=== PATIENT | male | born 1955 | race Caucasian/White ===

== ENCOUNTER 2016-10-11 07:16 | Emergency (ER) | payer OTHER ==
[~2016-10-11] VITALS: Ht 165.1 cm; Wt 78.2 kg
[~2016-10-11 07:16] MED LIST: ALBU8HFA IH; ASPI-825 PO; HALO50AM2 IM
[2016-10-11] MEDS ORDERED: LORA1TAB3 PO (07:37)
[2016-10-11] MEDS ORDERED: ALBUTEROL SULFATE HFA 90 MCG/PUFF 8 GM INHALER IH ONE (08:45)
[2016-10-11 08:52] VITALS: BP 112/64
== END 2016-10-11 09:06 | disposition home or self-care (01) ==
LOC: EMS 07:17
DX: J45.909 Unspecified asthma, uncomplicated (principal); J44.9 Chronic obstructive pulmonary disease, unspecified; F17.210 Nicotine dependence, cigarettes, uncomplicated; Z88.8 Allergy status to other drugs, medicaments and biological substances; Z79.82 Long term (current) use of aspirin
CPT/HCPCS: 71020; 94640; 99284; 99406; J3535

== ENCOUNTER 2017-01-21 23:27 | Emergency (ER) | payer OTHER ==
[~2017-01-21] VITALS: Ht 165.1 cm; Wt 72.7 kg
[~2017-01-21 23:27] MED LIST changes: +LORA1TAB3 PO
[2017-01-22] MEDS ORDERED: ALBUTEROL SULFATE 5 MG/ML 20 ML NEB SOLN [BULK] NEB ONE (00:15)
[2017-01-22] MEDS ORDERED: IPRATROPIUM BROMIDE 0.5 MG/2.5 ML NEB SOLUTION NEB ONE (00:15)
[2017-01-22] MEDS ORDERED: 0.9% SODIUM CHLORIDE 5 ML NEB SOLUTION NEB ONE (00:18)
[2017-01-22 01:12] VITALS: BP 109/63
== END 2017-01-22 01:35 | disposition home or self-care (01) ==
LOC: EMS 23:28
DX: J44.9 Chronic obstructive pulmonary disease, unspecified (principal); J45.909 Unspecified asthma, uncomplicated; F17.210 Nicotine dependence, cigarettes, uncomplicated; F12.90 Cannabis use, unspecified, uncomplicated; Z88.8 Allergy status to other drugs, medicaments and biological substances; Z79.82 Long term (current) use of aspirin
CPT/HCPCS: 94644; 99285; J7611

== ENCOUNTER 2017-02-21 19:37 | Emergency (ER) | payer OTHER ==
[~2017-02-21] VITALS: Ht 166.4 cm; Wt 65.9 kg
[2017-02-21] MEDS ORDERED: HALO5 PO (19:47)
[2017-02-21] MEDS ORDERED: NITROGLYCERIN 0.4 MG SUBLINGUAL TABLET #25 SL ONE (20:15)
[2017-02-21] MEDS ORDERED: ALBUTEROL SULFATE 5 MG/ML 20 ML NEB SOLN [BULK] NEB ONE (20:15)
[2017-02-21] MEDS ORDERED: PredniSONE 20 MG TABLET PO ONE (20:15)
[2017-02-21] MEDS ORDERED: ASPIRIN 325 MG TABLET PO ONE (20:15)
[2017-02-21 20:27] LABS: BASOPHILS % (AUTO) 0.8 % (0.0-2.0); EOSINOPHILS % (AUTO) 0.9 % (1.0-6.0); HEMOGLOBIN 15.2 g/dL (13.5-17.5); LYMPHOCYTES # (AUTO) 1.8 K/uL (1.0-4.8); MEAN CORPUSCULAR HEMOGLOBIN 31.4 pg (26.0-34.0); MEAN CORPUSCULAR HGB CONC 33.7 G/dL (31.0-37.0); MEAN CORPUSCULAR VOLUME 93 fL (80-100); MONOCYTES # (AUTO) 0.4 K/uL (0.1-1.0); MONOCYTES % (AUTO) 3.9 % (2.0-9.0); NEUTROPHILS # (AUTO) 7.5 K/uL (1.8-7.7); NEUTROPHILS % (AUTO) 76.4 % (40.0-70.0); PLATELET COUNT (AUTO) 289 K/uL (150-450); RED BLOOD CELL COUNT(AUTO) 4.83 MIL/uL (4.50-5.90); RED CELL DISTRIBUTION WIDTH 14.3 % (11.5-14.5); WHITE BLOOD COUNT (AUTO) 9.8 K/uL (4.5-11.0)
[2017-02-21 20:34] LABS: ANION GAP 11 mmol/L (8-16); CALCIUM, TOTAL 8.8 mg/dL (8.8-10.5); CARBON DIOXIDE 25 mmol/L (22-29); CHLORIDE 108 mmol/L (98-107); CREATININE 0.78 mg/dL (0.60-1.30); GLOMERULAR FILTR. RATE CALC > 60 mL/min (>60); POTASSIUM 3.7 mmol/L (3.5-5.1); SODIUM SERUM 144 mmol/L (136-145); UREA NITROGEN, BLOOD 9 mg/dL (7-18)
[2017-02-21 20:39] LABS: ALANINE AMINOTRANSFERASE 29 U/L (12-78); ALBUMIN 3.3 g/dL (3.4-5.0); ASPARTATE AMINOTRANSFERASE 23 U/L (15-37); BILIRUBIN,TOTAL 0.3 mg/dL (0.1-1.0); TOTAL PROTEIN, SERUM 7.1 g/dL (6.4-8.2)
[2017-02-21] MEDS ORDERED: 0.9% SODIUM CHLORIDE 5 ML NEB SOLUTION NEB ONE (21:08)
[2017-02-21 21:11] LABS: B-TYPE NATRIURETIC PEPTIDE 11 pg/mL (0-100)
[2017-02-22 01:41] VITALS: BP 132/82
== END 2017-02-22 01:48 | disposition home or self-care (01) ==
LOC: EMS 19:39
DX: J44.1 Chronic obstructive pulmonary disease with (acute) exacerbation (principal); R07.9 Chest pain, unspecified; R06.00 Dyspnea, unspecified; J45.909 Unspecified asthma, uncomplicated; F12.90 Cannabis use, unspecified, uncomplicated; F17.210 Nicotine dependence, cigarettes, uncomplicated; Z88.8 Allergy status to other drugs, medicaments and biological substances
CPT/HCPCS: 36415; 71020; 80053; 83690; 83880; 84484; 85025; 93005; 94640; 99285; J7512; J7611

== ENCOUNTER 2017-02-22 10:36 | Emergency (ER) | payer OTHER ==
[~2017-02-22] VITALS: Ht 165.1 cm; Wt 65.9 kg
[~2017-02-22 10:36] MED LIST changes: -ASPI-825 PO; +HALO5 PO; -HALO50AM2 IM
[2017-02-22 10:56] VITALS: BP 128/81
[2017-02-22] MEDS ORDERED: ALBUTEROL SULFATE HFA 90 MCG/PUFF 8 GM INHALER IH ONE (11:15)
[2017-02-22 11:17] LABS: EOSINOPHILS % (AUTO) 0.3 % (1.0-6.0); HEMATOCRIT 42.7 % (41-53); HEMOGLOBIN 14.5 g/dL (13.5-17.5); LYMPHOCYTES # (AUTO) 1.5 K/uL (1.0-4.8); LYMPHOCYTES % (AUTO) 14.8 % (22.0-44.0); MEAN CORPUSCULAR HEMOGLOBIN 31.4 pg (26.0-34.0); MEAN CORPUSCULAR VOLUME 92 fL (80-100); MONOCYTES # (AUTO) 0.3 K/uL (0.1-1.0); NEUTROPHILS # (AUTO) 8.4 K/uL (1.8-7.7); NEUTROPHILS % (AUTO) 81.9 % (40.0-70.0); PLATELET COUNT (AUTO) 292 K/uL (150-450); RED BLOOD CELL COUNT(AUTO) 4.62 MIL/uL (4.50-5.90); RED CELL DISTRIBUTION WIDTH 14.3 % (11.5-14.5); WHITE BLOOD COUNT (AUTO) 10.2 K/uL (4.5-11.0)
[2017-02-22 11:29] LABS: ANION GAP 10 mmol/L (8-16); CALCIUM, TOTAL 8.7 mg/dL (8.8-10.5); CARBON DIOXIDE 25 mmol/L (22-29); CHLORIDE 110 mmol/L (98-107); CREATININE 0.65 mg/dL (0.60-1.30); GLOMERULAR FILTR. RATE CALC > 60 mL/min (>60); POTASSIUM 4.1 mmol/L (3.5-5.1); SODIUM SERUM 145 mmol/L (136-145); UREA NITROGEN, BLOOD 13 mg/dL (7-18)
[2017-02-22 11:30] LABS: PROTHROMBIN TIME 10.7 SEC (9.4-11.6)
[2017-02-22 11:34] LABS: ALANINE AMINOTRANSFERASE 29 U/L (12-78); ALBUMIN 3.2 g/dL (3.4-5.0); ASPARTATE AMINOTRANSFERASE 23 U/L (15-37); BILIRUBIN,TOTAL 0.3 mg/dL (0.1-1.0); TOTAL PROTEIN, SERUM 6.8 g/dL (6.4-8.2)
[2017-02-22 11:39] LABS: B-TYPE NATRIURETIC PEPTIDE 12 pg/mL (0-100)
== END 2017-02-22 11:47 | disposition left against medical advice (07) ==
LOC: EMS 10:37
DX: J44.9 Chronic obstructive pulmonary disease, unspecified (principal); J20.9 Acute bronchitis, unspecified; J45.909 Unspecified asthma, uncomplicated; F17.210 Nicotine dependence, cigarettes, uncomplicated; F12.90 Cannabis use, unspecified, uncomplicated; Z88.8 Allergy status to other drugs, medicaments and biological substances
CPT/HCPCS: 93005; 94640; 99285; J3535

== ENCOUNTER 2017-02-28 01:09 | Emergency (ER) | payer OTHER ==
[~2017-02-28] VITALS: Ht 165.1 cm; Wt 68.0 kg
[~2017-02-28 01:09] MED LIST changes: +ASPI-825 PO; +HALO50AM2 IM
[2017-02-28 02:12] LABS: BASOPHILS # (AUTO) 0.18 K/uL (0.00-0.20); BASOPHILS % (AUTO) 1.5 % (0.0-2.0); EOSINOPHILS # (AUTO) 0.05 K/uL (0.00-0.70); EOSINOPHILS % (AUTO) 0.42 % (1.0-6.0); HEMATOCRIT 41.6 % (41-53); HEMOGLOBIN 13.8 g/dL (13.5-17.5); LYMPHOCYTES # (AUTO) 2.8 K/uL (1.0-4.8); LYMPHOCYTES % (AUTO) 23.8 % (22.0-44.0); MEAN CORPUSCULAR HEMOGLOBIN 30.7 pg (26.0-34.0); MEAN CORPUSCULAR HGB CONC 33.1 G/dL (31.0-37.0); MEAN CORPUSCULAR VOLUME 93 fL (80-100); MONOCYTES # (AUTO) 0.5 K/uL (0.1-1.0); MONOCYTES % (AUTO) 4.1 % (2.0-9.0); NEUTROPHILS # (AUTO) 8.3 K/uL (1.8-7.7); NEUTROPHILS % (AUTO) 70.2 % (40.0-70.0); PLATELET COUNT (AUTO) 265 K/uL (150-450); RED BLOOD CELL COUNT(AUTO) 4.49 MIL/uL (4.50-5.90); RED CELL DISTRIBUTION WIDTH 14.5 % (11.5-14.5); WHITE BLOOD COUNT (AUTO) 11.8 K/uL (4.5-11.0)
[2017-02-28 02:31] LABS: B-TYPE NATRIURETIC PEPTIDE 6 pg/mL (0-100)
[2017-02-28 02:34] LABS: ALANINE AMINOTRANSFERASE 34 U/L (12-78); ANION GAP 15 mmol/L (8-16); ASPARTATE AMINOTRANSFERASE 26 U/L (15-37); BILIRUBIN,TOTAL 0.2 mg/dL (0.1-1.0); CALCIUM, TOTAL 8.2 mg/dL (8.8-10.5); CARBON DIOXIDE 22 mmol/L (22-29); CHLORIDE 110 mmol/L (98-107); CREATININE 1.01 mg/dL (0.60-1.30); GLOMERULAR FILTR. RATE CALC > 60 mL/min (>60); SODIUM SERUM 147 mmol/L (136-145); TOTAL PROTEIN, SERUM 6.1 g/dL (6.4-8.2); UREA NITROGEN, BLOOD 16 mg/dL (7-18)
[2017-02-28 02:37] LABS: POTASSIUM 2.9 mmol/L (3.5-5.1)
[2017-02-28] MEDS ORDERED: POTASSIUM CHLORIDE 20 MEQ ER TABLET PO ONE (03:00)
[2017-02-28] MEDS: POTASSIUM CHL 10 MEQ/WATER 50 ML IV SCH ×2 (03:25→04:31)
[2017-02-28] MEDS ORDERED: ALBUTEROL SULFATE HFA 90 MCG/PUFF 8 GM INHALER IH ONE (06:00)
[2017-02-28 06:07] VITALS: BP 105/63
== END 2017-02-28 06:08 | disposition home or self-care (01) ==
LOC: EMS 01:10
DX: R07.9 Chest pain, unspecified (principal); E87.6 Hypokalemia; J45.909 Unspecified asthma, uncomplicated; J44.9 Chronic obstructive pulmonary disease, unspecified; F12.90 Cannabis use, unspecified, uncomplicated; F17.210 Nicotine dependence, cigarettes, uncomplicated; Z88.8 Allergy status to other drugs, medicaments and biological substances
CPT/HCPCS: 36415; 80053; 83690; 83880; 84132; 84484; 85025; 93005; 94640; 96365; 96366; 99285; 99406; J3480; J3535

== ENCOUNTER 2017-03-03 01:37 | Emergency (ER) | payer OTHER ==
[~2017-03-03] VITALS: Ht 165.1 cm; Wt 66.0 kg
[~2017-03-03 01:37] MED LIST changes: -ASPI-825 PO; -HALO50AM2 IM
[2017-03-03 02:48] LABS: BASOPHILS # (AUTO) 0.11 K/uL (0.00-0.20); BASOPHILS % (AUTO) 1.3 % (0.0-2.0); EOSINOPHILS # (AUTO) 0.14 K/uL (0.00-0.70); EOSINOPHILS % (AUTO) 1.65 % (1.0-6.0); HEMATOCRIT 41.4 % (41-53); LYMPHOCYTES # (AUTO) 1.7 K/uL (1.0-4.8); LYMPHOCYTES % (AUTO) 20.5 % (22.0-44.0); MEAN CORPUSCULAR HGB CONC 33.9 G/dL (31.0-37.0); MEAN CORPUSCULAR VOLUME 92 fL (80-100); MONOCYTES # (AUTO) 0.3 K/uL (0.1-1.0); MONOCYTES % (AUTO) 4.1 % (2.0-9.0); NEUTROPHILS % (AUTO) 72.5 % (40.0-70.0); PLATELET COUNT (AUTO) 218 K/uL (150-450); RED BLOOD CELL COUNT(AUTO) 4.53 MIL/uL (4.50-5.90); RED CELL DISTRIBUTION WIDTH 14.4 % (11.5-14.5); WHITE BLOOD COUNT (AUTO) 8.3 K/uL (4.5-11.0)
[2017-03-03 02:56] LABS: ANION GAP 10 mmol/L (8-16); CALCIUM, TOTAL 8.2 mg/dL (8.8-10.5); CARBON DIOXIDE 24 mmol/L (22-29); CHLORIDE 108 mmol/L (98-107); CREATININE 0.92 mg/dL (0.60-1.30); GLOMERULAR FILTR. RATE CALC > 60 mL/min (>60); POTASSIUM 3.8 mmol/L (3.5-5.1); SODIUM SERUM 142 mmol/L (136-145); UREA NITROGEN, BLOOD 13 mg/dL (7-18)
[2017-03-03 02:59] LABS: ALANINE AMINOTRANSFERASE 33 U/L (12-78); ALBUMIN 2.9 g/dL (3.4-5.0); ASPARTATE AMINOTRANSFERASE 24 U/L (15-37); BILIRUBIN,TOTAL 0.3 mg/dL (0.1-1.0); TOTAL PROTEIN, SERUM 6.2 g/dL (6.4-8.2)
[2017-03-03 03:21] LABS: B-TYPE NATRIURETIC PEPTIDE < 5 pg/mL (0-100)
[2017-03-03 03:29] VITALS: BP 121/67
[2017-03-03] MEDS ORDERED: ALBUTEROL SULFATE 5 MG/ML 20 ML NEB SOLN [BULK] NEB ONE (03:30)
[2017-03-03] MEDS ORDERED: DEXAMETHASONE SOD PHOS 4 MG/ML 5 ML VIAL IM ONE (03:30)
[2017-03-03] MEDS ORDERED: LORazepam 2 MG/ML VIAL IM ONE (03:30)
[2017-03-03] MEDS ORDERED: 0.9% SODIUM CHLORIDE 5 ML NEB SOLUTION NEB ONE (03:43)
== END 2017-03-03 04:30 | disposition left against medical advice (07) ==
LOC: EMS 01:39
DX: J44.9 Chronic obstructive pulmonary disease, unspecified (principal); J45.909 Unspecified asthma, uncomplicated; F17.210 Nicotine dependence, cigarettes, uncomplicated; F12.90 Cannabis use, unspecified, uncomplicated; Z88.8 Allergy status to other drugs, medicaments and biological substances
CPT/HCPCS: 36415; 71010; 80053; 83880; 84484; 85025; 93005; 94640; 99285; J7611; J1100; J2060

== ENCOUNTER 2017-03-12 21:42 | Emergency (ER) | payer OTHER ==
[~2017-03-12] VITALS: Ht 165.1 cm; Wt 145.0 kg
[2017-03-12] MEDS ORDERED: ALBUTEROL SULFATE HFA 90 MCG/PUFF 8 GM INHALER IH ONE (23:15)
[2017-03-12 23:28] LABS: BASOPHILS % (AUTO) 0.8 % (0.0-2.0); EOSINOPHILS % (AUTO) 1.2 % (1.0-6.0); HEMOGLOBIN 14.1 g/dL (13.5-17.5); LYMPHOCYTES # (AUTO) 1.7 K/uL (1.0-4.8); LYMPHOCYTES % (AUTO) 16.9 % (22.0-44.0); MEAN CORPUSCULAR HEMOGLOBIN 31.4 pg (26.0-34.0); MEAN CORPUSCULAR HGB CONC 34.4 G/dL (31.0-37.0); MEAN CORPUSCULAR VOLUME 91 fL (80-100); MONOCYTES # (AUTO) 0.4 K/uL (0.1-1.0); MONOCYTES % (AUTO) 4.1 % (2.0-9.0); NEUTROPHILS # (AUTO) 7.7 K/uL (1.8-7.7); PLATELET COUNT (AUTO) 257 K/uL (150-450); RED BLOOD CELL COUNT(AUTO) 4.49 MIL/uL (4.50-5.90); RED CELL DISTRIBUTION WIDTH 14.2 % (11.5-14.5)
[2017-03-12 23:37] LABS: ANION GAP 8 mmol/L (8-16); CALCIUM, TOTAL 8.2 mg/dL (8.8-10.5); CARBON DIOXIDE 26 mmol/L (22-29); CHLORIDE 108 mmol/L (98-107); CREATININE 0.89 mg/dL (0.60-1.30); GLOMERULAR FILTR. RATE CALC > 60 mL/min (>60); POTASSIUM 3.5 mmol/L (3.5-5.1); SODIUM SERUM 142 mmol/L (136-145); UREA NITROGEN, BLOOD 18 mg/dL (7-18)
[2017-03-12 23:43] LABS: ALANINE AMINOTRANSFERASE 24 U/L (12-78); ALBUMIN 2.9 g/dL (3.4-5.0); ASPARTATE AMINOTRANSFERASE 17 U/L (15-37); BILIRUBIN,TOTAL 0.2 mg/dL (0.1-1.0); TOTAL PROTEIN, SERUM 6.1 g/dL (6.4-8.2)
[2017-03-13 00:32] VITALS: BP 128/78
== END 2017-03-13 00:40 | disposition home or self-care (01) ==
LOC: EMS 21:51
DX: J44.1 Chronic obstructive pulmonary disease with (acute) exacerbation (principal); R07.89 Other chest pain; S63.615A Unspecified sprain of left ring finger, initial encounter; J45.909 Unspecified asthma, uncomplicated; F12.90 Cannabis use, unspecified, uncomplicated; F17.210 Nicotine dependence, cigarettes, uncomplicated; Z88.8 Allergy status to other drugs, medicaments and biological substances; W22.8XXA Striking against or struck by other objects, initial encounter; Y93.89 Activity, other specified; Y92.009 Unspecified place in unspecified non-institutional (private) residence as the place of occurrence of the external cause; Y99.8 Other external cause status
CPT/HCPCS: 93005; 94640; 99285; 99406; J3535

== ENCOUNTER 2017-03-16 10:55 | Emergency (ER) | payer OTHER ==
[~2017-03-16] VITALS: Ht 175.3 cm; Wt 81.8 kg
[2017-03-16] MEDS ORDERED: IBUP-2070 PO (11:01)
[2017-03-16 11:28] LABS: BASOPHILS # (AUTO) 0.03 K/uL (0.00-0.20); BASOPHILS % (AUTO) 0.4 % (0.0-2.0); EOSINOPHILS # (AUTO) 0.08 K/uL (0.00-0.70); EOSINOPHILS % (AUTO) 0.98 % (1.0-6.0); HEMATOCRIT 42.6 % (41-53); HEMOGLOBIN 14.5 g/dL (13.5-17.5); LYMPHOCYTES # (AUTO) 1.2 K/uL (1.0-4.8); LYMPHOCYTES % (AUTO) 15.1 % (22.0-44.0); MEAN CORPUSCULAR HEMOGLOBIN 31.1 pg (26.0-34.0); MEAN CORPUSCULAR HGB CONC 33.9 G/dL (31.0-37.0); MEAN CORPUSCULAR VOLUME 92 fL (80-100); MONOCYTES # (AUTO) 0.1 K/uL (0.1-1.0); MONOCYTES % (AUTO) 1.8 % (2.0-9.0); NEUTROPHILS # (AUTO) 6.5 K/uL (1.8-7.7); NEUTROPHILS % (AUTO) 81.7 % (40.0-70.0); PLATELET COUNT (AUTO) 264 K/uL (150-450); RED BLOOD CELL COUNT(AUTO) 4.65 MIL/uL (4.50-5.90); WHITE BLOOD COUNT (AUTO) 7.9 K/uL (4.5-11.0)
[2017-03-16 11:40] LABS: ANION GAP 7 mmol/L (8-16); CALCIUM, TOTAL 8.5 mg/dL (8.8-10.5); CARBON DIOXIDE 27 mmol/L (22-29); CHLORIDE 108 mmol/L (98-107); CREATININE 0.78 mg/dL (0.60-1.30); GLOMERULAR FILTR. RATE CALC > 60 mL/min (>60); SODIUM SERUM 142 mmol/L (136-145); UREA NITROGEN, BLOOD 12 mg/dL (7-18)
[2017-03-16 11:42] LABS: PROTHROMBIN TIME 10.5 SEC (9.4-11.6)
[2017-03-16 11:44] LABS: B-TYPE NATRIURETIC PEPTIDE 39 pg/mL (0-100)
[2017-03-16 12:05] LABS: ALANINE AMINOTRANSFERASE 28 U/L (12-78); ALBUMIN 3.2 g/dL (3.4-5.0); ASPARTATE AMINOTRANSFERASE 20 U/L (15-37); BILIRUBIN,TOTAL 0.3 mg/dL (0.1-1.0); CREATINE KINASE MB 3.4 ng/mL (0-5); CREATINE KINASE, TOTAL 212 U/L (39-308); TOTAL PROTEIN, SERUM 6.8 g/dL (6.4-8.2)
[2017-03-16 12:29] LABS: APPEARANCE,URINE CLEAR (CLEAR); GLUCOSE, URINE (UA) NEGATIVE (NEGATIVE); KETONES,URINE NEGATIVE (NEGATIVE); LEUKOCYTE ESTERASE ,URINE NEGATIVE (NEGATIVE); OCCULT BLOOD,URINE NEGATIVE (NEGATIVE); PROTEIN,URINE NEGATIVE (NEGATIVE)
[2017-03-16 12:39] LABS: ADD UA MICROSCOPIC NO
[2017-03-16 13:12] VITALS: BP 114/72
== END 2017-03-16 13:58 | disposition home or self-care (01) ==
LOC: EMS 10:56
DX: R07.89 Other chest pain (principal); J45.909 Unspecified asthma, uncomplicated; J44.9 Chronic obstructive pulmonary disease, unspecified; F12.90 Cannabis use, unspecified, uncomplicated; F17.210 Nicotine dependence, cigarettes, uncomplicated; Z88.8 Allergy status to other drugs, medicaments and biological substances
CPT/HCPCS: 93005; 99285

== ENCOUNTER 2017-03-16 20:28 | Emergency (ER) | payer OTHER ==
[~2017-03-16] VITALS: Ht 170.2 cm; Wt 65.5 kg
[~2017-03-16 20:28] MED LIST changes: +IBUP-2070 PO
[2017-03-16 21:00] LABS: BASOPHILS % (AUTO) 0.4 % (0.0-2.0); EOSINOPHILS % (AUTO) 1.5 % (1.0-6.0); HEMATOCRIT 39.7 % (41-53); HEMOGLOBIN 13.7 g/dL (13.5-17.5); LYMPHOCYTES # (AUTO) 2.2 K/uL (1.0-4.8); LYMPHOCYTES % (AUTO) 24.1 % (22.0-44.0); MEAN CORPUSCULAR HEMOGLOBIN 31.7 pg (26.0-34.0); MEAN CORPUSCULAR HGB CONC 34.4 G/dL (31.0-37.0); MEAN CORPUSCULAR VOLUME 92 fL (80-100); MONOCYTES # (AUTO) 0.4 K/uL (0.1-1.0); MONOCYTES % (AUTO) 4.8 % (2.0-9.0); NEUTROPHILS # (AUTO) 6.4 K/uL (1.8-7.7); NEUTROPHILS % (AUTO) 69.2 % (40.0-70.0); PLATELET COUNT (AUTO) 247 K/uL (150-450); RED BLOOD CELL COUNT(AUTO) 4.31 MIL/uL (4.50-5.90); RED CELL DISTRIBUTION WIDTH 14.2 % (11.5-14.5); WHITE BLOOD COUNT (AUTO) 9.3 K/uL (4.5-11.0)
[2017-03-16 21:10] LABS: ANION GAP 10 mmol/L (8-16); CALCIUM, TOTAL 8.5 mg/dL (8.8-10.5); CARBON DIOXIDE 25 mmol/L (22-29); CHLORIDE 109 mmol/L (98-107); CREATININE 0.87 mg/dL (0.60-1.30); GLOMERULAR FILTR. RATE CALC > 60 mL/min (>60); POTASSIUM 3.8 mmol/L (3.5-5.1); SODIUM SERUM 144 mmol/L (136-145); UREA NITROGEN, BLOOD 12 mg/dL (7-18)
[2017-03-16 21:15] LABS: ACETAMINOPHEN 2 mcg/mL (10-30); ALANINE AMINOTRANSFERASE 23 U/L (12-78); ALBUMIN 3.4 g/dL (3.4-5.0); ASPARTATE AMINOTRANSFERASE 18 U/L (15-37); BILIRUBIN,TOTAL 0.1 mg/dL (0.1-1.0); TOTAL PROTEIN, SERUM 6.5 g/dL (6.4-8.2)
[2017-03-16 21:21] LABS: SALICYLATE 1.8 mg/dL (2.8-20.0)
[2017-03-16 22:55] VITALS: BP 119/65
== END 2017-03-16 22:57 | disposition home or self-care (01) ==
LOC: EMS 20:38
DX: F91.2 Conduct disorder, adolescent-onset type (principal); M54.5 Low back pain; F17.210 Nicotine dependence, cigarettes, uncomplicated; F12.10 Cannabis abuse, uncomplicated; J44.9 Chronic obstructive pulmonary disease, unspecified; F20.9 Schizophrenia, unspecified; F31.9 Bipolar disorder, unspecified; Z88.8 Allergy status to other drugs, medicaments and biological substances; Z86.73 Personal history of transient ischemic attack (TIA), and cerebral infarction without residual deficits
CPT/HCPCS: 36415; 80053; 85025; 99284; 99406; G0480; G0481

== ENCOUNTER 2017-03-17 15:20 | Emergency (ER) | payer OTHER ==
[~2017-03-17] VITALS: Ht 165.1 cm; Wt 63.6 kg
[2017-03-17 17:09] LABS: BASOPHILS % (AUTO) 0.2 % (0.0-2.0); EOSINOPHILS % (AUTO) 0.3 % (1.0-6.0); HEMATOCRIT 45.9 % (41-53); HEMOGLOBIN 15.5 g/dL (13.5-17.5); LYMPHOCYTES # (AUTO) 0.9 K/uL (1.0-4.8); MEAN CORPUSCULAR HEMOGLOBIN 31.4 pg (26.0-34.0); MEAN CORPUSCULAR HGB CONC 33.8 G/dL (31.0-37.0); MEAN CORPUSCULAR VOLUME 93 fL (80-100); MONOCYTES # (AUTO) 0.4 K/uL (0.1-1.0); MONOCYTES % (AUTO) 3.8 % (2.0-9.0); NEUTROPHILS # (AUTO) 10.2 K/uL (1.8-7.7); PLATELET COUNT (AUTO) 288 K/uL (150-450); RED BLOOD CELL COUNT(AUTO) 4.94 MIL/uL (4.50-5.90); RED CELL DISTRIBUTION WIDTH 14.4 % (11.5-14.5); WHITE BLOOD COUNT (AUTO) 11.7 K/uL (4.5-11.0)
[2017-03-17 17:10] LABS: NEUTROPHILS % (AUTO) 87.7 % (40.0-70.0)
[2017-03-17 17:22] LABS: ANION GAP 8 mmol/L (8-16); CALCIUM, TOTAL 8.6 mg/dL (8.8-10.5); CARBON DIOXIDE 26 mmol/L (22-29); CHLORIDE 111 mmol/L (98-107); CREATININE 1.16 mg/dL (0.60-1.30); GLOMERULAR FILTR. RATE CALC > 60 mL/min (>60); POTASSIUM 4.1 mmol/L (3.5-5.1); SODIUM SERUM 145 mmol/L (136-145); UREA NITROGEN, BLOOD 12 mg/dL (7-18)
[2017-03-17 17:36] LABS: ALANINE AMINOTRANSFERASE 27 U/L (12-78); ALBUMIN 3.4 g/dL (3.4-5.0); ASPARTATE AMINOTRANSFERASE 22 U/L (15-37); BILIRUBIN,TOTAL 0.4 mg/dL (0.1-1.0); TOTAL PROTEIN, SERUM 7.1 g/dL (6.4-8.2)
[2017-03-17 17:41] LABS: RBC MORPHOLOGY COMMENT NORMAL RBC MORPH
[2017-03-17] MEDS ORDERED: ALBUTEROL SULFATE 2.5 MG/0.5 ML NEB SOLUTION NEB ONE (20:15)
[2017-03-17] MEDS ORDERED: IPRATROPIUM BROMIDE 0.5 MG/2.5 ML NEB SOLUTION NEB ONE (20:15)
[2017-03-17 20:55] VITALS: BP 127/84
== END 2017-03-17 21:20 | disposition home or self-care (01) ==
LOC: EMS 15:22
DX: F44.9 Dissociative and conversion disorder, unspecified (principal); F31.9 Bipolar disorder, unspecified; J44.9 Chronic obstructive pulmonary disease, unspecified; F20.9 Schizophrenia, unspecified; I25.10 Atherosclerotic heart disease of native coronary artery without angina pectoris; F17.210 Nicotine dependence, cigarettes, uncomplicated; F12.10 Cannabis abuse, uncomplicated
CPT/HCPCS: 36415; 80053; 80307; 85025; 94060; 94640; 99284; G0480; J7613

== ENCOUNTER 2017-03-21 19:48 | Emergency (ER) | payer OTHER ==
[~2017-03-21] VITALS: Ht 165.1 cm; Wt 56.8 kg
[2017-03-21] MEDS ORDERED: LORazepam 1 MG TABLET PO ONE (21:00)
[2017-03-21 21:45] VITALS: BP 122/81
== END 2017-03-21 21:53 | disposition home or self-care (01) ==
LOC: EMS 19:50
DX: F41.9 Anxiety disorder, unspecified (principal); F20.9 Schizophrenia, unspecified; J44.9 Chronic obstructive pulmonary disease, unspecified; F31.9 Bipolar disorder, unspecified; Z86.73 Personal history of transient ischemic attack (TIA), and cerebral infarction without residual deficits; Z88.8 Allergy status to other drugs, medicaments and biological substances
CPT/HCPCS: 93005; 99285

== ENCOUNTER 2017-04-07 05:05 | Emergency (ER) | payer OTHER ==
[~2017-04-07] VITALS: Ht 167.6 cm; Wt 80.0 kg
[2017-04-07] MEDS ORDERED: BUDE10.2 IH (05:22)
[2017-04-07] MEDS ORDERED: IPRATROPIUM BROMIDE 0.5 MG/2.5 ML NEB SOLUTION NEB ONE (06:15)
[2017-04-07] MEDS ORDERED: ALBUTEROL SULFATE 2.5 MG/0.5 ML NEB SOLUTION NEB ONE (06:15)
[2017-04-07 08:11] VITALS: BP 103/73
== END 2017-04-07 08:46 | disposition home or self-care (01) ==
LOC: EMS 05:06
DX: F41.9 Anxiety disorder, unspecified (principal); J45.909 Unspecified asthma, uncomplicated; J44.9 Chronic obstructive pulmonary disease, unspecified; F12.90 Cannabis use, unspecified, uncomplicated; F17.210 Nicotine dependence, cigarettes, uncomplicated; Z88.8 Allergy status to other drugs, medicaments and biological substances
CPT/HCPCS: 36415; 84484; 93005; 94640; 99285; J7613

== ENCOUNTER 2017-04-11 17:35 | Emergency (ER) | payer OTHER ==
[~2017-04-11] VITALS: Ht 165.1 cm; Wt 73.6 kg
[~2017-04-11 17:35] MED LIST changes: +BUDE10.2 IH; -HALO5 PO; -IBUP-2070 PO; -LORA1TAB3 PO
[2017-04-11] MEDS ORDERED: IBUP-2070 PO (17:47)
[2017-04-11] MEDS ORDERED: ASPIRIN 81 MG CHEWABLE TABLET PO ONE (18:15)
[2017-04-11 18:34] LABS: BASOPHILS % (AUTO) 0.7 % (0.0-2.0); EOSINOPHILS % (AUTO) 0.5 % (1.0-6.0); HEMATOCRIT 41.6 % (41-53); HEMOGLOBIN 14.1 g/dL (13.5-17.5); LYMPHOCYTES # (AUTO) 1.1 K/uL (1.0-4.8); LYMPHOCYTES % (AUTO) 11.2 % (22.0-44.0); MEAN CORPUSCULAR HEMOGLOBIN 31.3 pg (26.0-34.0); MEAN CORPUSCULAR VOLUME 92 fL (80-100); MONOCYTES # (AUTO) 0.4 K/uL (0.1-1.0); MONOCYTES % (AUTO) 3.7 % (2.0-9.0); NEUTROPHILS % (AUTO) 83.9 % (40.0-70.0); PLATELET COUNT (AUTO) 303 K/uL (150-450); RED BLOOD CELL COUNT(AUTO) 4.51 MIL/uL (4.50-5.90); RED CELL DISTRIBUTION WIDTH 13.9 % (11.5-14.5); WHITE BLOOD COUNT (AUTO) 9.5 K/uL (4.5-11.0)
[2017-04-11 18:41] LABS: ANION GAP 7 mmol/L (8-16); CALCIUM, TOTAL 8.4 mg/dL (8.8-10.5); CARBON DIOXIDE 27 mmol/L (22-29); CHLORIDE 104 mmol/L (98-107); CREATININE 0.83 mg/dL (0.60-1.30); GLOMERULAR FILTR. RATE CALC > 60 mL/min (>60); POTASSIUM 3.6 mmol/L (3.5-5.1); SODIUM SERUM 138 mmol/L (136-145); UREA NITROGEN, BLOOD 10 mg/dL (7-18)
[2017-04-11 19:06] LABS: ALANINE AMINOTRANSFERASE 29 U/L (12-78); ALBUMIN 3.2 g/dL (3.4-5.0); ASPARTATE AMINOTRANSFERASE 19 U/L (15-37); BILIRUBIN,TOTAL 0.3 mg/dL (0.1-1.0); CREATINE KINASE MB 5.8 ng/mL (0-5); CREATINE KINASE, TOTAL 311 U/L (39-308); TOTAL PROTEIN, SERUM 6.6 g/dL (6.4-8.2)
[2017-04-11 19:50] LABS: B-TYPE NATRIURETIC PEPTIDE 13 pg/mL (0-100)
[2017-04-11 20:13] VITALS: BP 126/63
== END 2017-04-11 20:14 | disposition home or self-care (01) ==
LOC: EMS 17:37
DX: R07.2 Precordial pain (principal); J45.909 Unspecified asthma, uncomplicated; J44.9 Chronic obstructive pulmonary disease, unspecified; F12.90 Cannabis use, unspecified, uncomplicated; F17.210 Nicotine dependence, cigarettes, uncomplicated; Z88.8 Allergy status to other drugs, medicaments and biological substances
CPT/HCPCS: 93005; 99285

== ENCOUNTER 2017-05-24 01:52 | Emergency (ER) | payer OTHER ==
[~2017-05-24] VITALS: Ht 162.6 cm; Wt 65.9 kg
[~2017-05-24 01:52] MED LIST changes: +IBUP-2070 PO
[2017-05-24 02:29] LABS: EOSINOPHILS % (AUTO) 0.2 % (1.0-6.0); HEMATOCRIT 43.1 % (41-53); HEMOGLOBIN 14.5 g/dL (13.5-17.5); LYMPHOCYTES # (AUTO) 0.6 K/uL (1.0-4.8); LYMPHOCYTES % (AUTO) 2.8 % (22.0-44.0); MEAN CORPUSCULAR HEMOGLOBIN 30.6 pg (26.0-34.0); MEAN CORPUSCULAR HGB CONC 33.5 G/dL (31.0-37.0); MEAN CORPUSCULAR VOLUME 91 fL (80-100); MONOCYTES # (AUTO) 0.7 K/uL (0.1-1.0); MONOCYTES % (AUTO) 2.9 % (2.0-9.0); NEUTROPHILS # (AUTO) 21.1 K/uL (1.8-7.7); PLATELET COUNT (AUTO) 223 K/uL (150-450); RED BLOOD CELL COUNT(AUTO) 4.71 MIL/uL (4.50-5.90); RED CELL DISTRIBUTION WIDTH 14.5 % (11.5-14.5); WHITE BLOOD COUNT (AUTO) 22.4 K/uL (4.5-11.0)
[2017-05-24 02:31] LABS: NEUTROPHILS % (AUTO) 94.1 % (40.0-70.0)
[2017-05-24 02:41] LABS: ANION GAP 12 mmol/L (8-16); CARBON DIOXIDE 26 mmol/L (22-29); CHLORIDE 104 mmol/L (98-107); CREATININE 1.75 mg/dL (0.60-1.30); GLOMERULAR FILTR. RATE CALC 40 mL/min (>60); POTASSIUM 3.2 mmol/L (3.5-5.1); SODIUM SERUM 142 mmol/L (136-145); UREA NITROGEN, BLOOD 63 mg/dL (7-18)
[2017-05-24 02:46] LABS: ALANINE AMINOTRANSFERASE 45 U/L (12-78); ALBUMIN 2.8 g/dL (3.4-5.0); ASPARTATE AMINOTRANSFERASE 48 U/L (15-37); BILIRUBIN,TOTAL 0.8 mg/dL (0.1-1.0); TOTAL PROTEIN, SERUM 6.5 g/dL (6.4-8.2)
[2017-05-24] MEDS ORDERED: POTASSIUM CHLORIDE 20 MEQ ER TABLET PO ONE ×2 (03:30→06:30)
[2017-05-24] MEDS ORDERED: IPRATROPIUM BROMIDE 0.5 MG/2.5 ML NEB SOLUTION NEB ONE (03:30)
[2017-05-24] MEDS ORDERED: SODIUM CHLORIDE 0.9% 1,000 ML IV ONE ×2 (03:30→08:00)
[2017-05-24] MEDS ORDERED: ALBUTEROL SULFATE 2.5 MG/0.5 ML NEB SOLUTION NEB ONE (03:30)
[2017-05-24 05:45] LABS: BASOPHILS # (AUTO) 0.05 K/uL (0.00-0.20); BASOPHILS % (AUTO) 0.2 % (0.0-2.0); EOSINOPHILS # (AUTO) 0.05 K/uL (0.00-0.70); EOSINOPHILS % (AUTO) 0.21 % (1.0-6.0); HEMATOCRIT 39.9 % (41-53); HEMOGLOBIN 13.2 g/dL (13.5-17.5); LYMPHOCYTES # (AUTO) 0.9 K/uL (1.0-4.8); MEAN CORPUSCULAR HEMOGLOBIN 30.6 pg (26.0-34.0); MEAN CORPUSCULAR HGB CONC 33.2 G/dL (31.0-37.0); MEAN CORPUSCULAR VOLUME 92 fL (80-100); MONOCYTES # (AUTO) 0.6 K/uL (0.1-1.0); MONOCYTES % (AUTO) 2.8 % (2.0-9.0); NEUTROPHILS # (AUTO) 20.6 K/uL (1.8-7.7); NEUTROPHILS % (AUTO) 92.8 % (40.0-70.0); PLATELET COUNT (AUTO) 197 K/uL (150-450); RED BLOOD CELL COUNT(AUTO) 4.33 MIL/uL (4.50-5.90); RED CELL DISTRIBUTION WIDTH 14.6 % (11.5-14.5); WHITE BLOOD COUNT (AUTO) 22.2 K/uL (4.5-11.0)
[2017-05-24 05:57] LABS: CALCIUM, TOTAL 8.3 mg/dL (8.8-10.5); CREATININE 1.44 mg/dL (0.60-1.30); POTASSIUM 3.2 mmol/L (3.5-5.1)
[2017-05-24 06:07] LABS: ALBUMIN 2.5 g/dL (3.4-5.0); BILIRUBIN,TOTAL 0.8 mg/dL (0.1-1.0); TOTAL PROTEIN, SERUM 5.9 g/dL (6.4-8.2)
[2017-05-24 06:44] LABS: GLUCOSE, URINE (UA) NEGATIVE (NEGATIVE); KETONES,URINE 15 mg/dL (NEGATIVE); LEUKOCYTE ESTERASE ,URINE NEGATIVE (NEGATIVE); OCCULT BLOOD,URINE SMALL (NEGATIVE); PROTEIN,URINE TRACE (NEGATIVE)
[2017-05-24] MEDS ORDERED: AZITHROMYCIN 500 MG/NS 250 ML IV ONE (07:00)
[2017-05-24] MEDS ORDERED: CefTRIAXone 1 GM/DEXTROSE 50 ML IV ONE (07:00)
[2017-05-24 07:03] LABS: ADD UA MICROSCOPIC YES; APPEARANCE,URINE HAZY (CLEAR); WBC,URINE None Seen /HPF (0-5)
[2017-05-24 08:19] VITALS: BP 98/69
== END 2017-05-24 09:40 | disposition short-term general hospital (02) ==
LOC: EMS 01:53
DX: J18.9 Pneumonia, unspecified organism (principal); F25.9 Schizoaffective disorder, unspecified; F41.9 Anxiety disorder, unspecified; F31.9 Bipolar disorder, unspecified; J44.9 Chronic obstructive pulmonary disease, unspecified; J45.909 Unspecified asthma, uncomplicated; F17.210 Nicotine dependence, cigarettes, uncomplicated; F12.90 Cannabis use, unspecified, uncomplicated; Z86.73 Personal history of transient ischemic attack (TIA), and cerebral infarction without residual deficits; Z88.8 Allergy status to other drugs, medicaments and biological substances
CPT/HCPCS: 36415; 71020; 80053; 80307; 81001; 85025; 87040; 93005; 94640; 96361; 96365; 96368; 99285; G0480; J0456; J0696; J7030; J7613

== ENCOUNTER 2017-05-27 22:33 | Emergency (ER) | payer OTHER ==
[~2017-05-27] VITALS: Ht 165.1 cm; Wt 64.7 kg
[2017-05-27 23:13] LABS: EOSINOPHILS % (AUTO) 0.02 % (1.0-6.0); HEMATOCRIT 41.2 % (41-53); LYMPHOCYTES # (AUTO) 0.4 K/uL (1.0-4.8); LYMPHOCYTES % (AUTO) 3.7 % (22.0-44.0); MEAN CORPUSCULAR HEMOGLOBIN 30.6 pg (26.0-34.0); MEAN CORPUSCULAR VOLUME 90 fL (80-100); MONOCYTES # (AUTO) 0.1 K/uL (0.1-1.0); MONOCYTES % (AUTO) 0.7 % (2.0-9.0); NEUTROPHILS # (AUTO) 11.3 K/uL (1.8-7.7); PLATELET COUNT (AUTO) 267 K/uL (150-450); RED BLOOD CELL COUNT(AUTO) 4.58 MIL/uL (4.50-5.90); RED CELL DISTRIBUTION WIDTH 14.3 % (11.5-14.5); WHITE BLOOD COUNT (AUTO) 11.8 K/uL (4.5-11.0)
[2017-05-27 23:14] LABS: NEUTROPHILS % (AUTO) 95.5 % (40.0-70.0)
[2017-05-27 23:23] LABS: ANION GAP 9 mmol/L (8-16); CALCIUM, TOTAL 9.1 mg/dL (8.8-10.5); CARBON DIOXIDE 27 mmol/L (22-29); CHLORIDE 100 mmol/L (98-107); CREATININE 0.78 mg/dL (0.60-1.30); GLOMERULAR FILTR. RATE CALC > 60 mL/min (>60); POTASSIUM 4.3 mmol/L (3.5-5.1); SODIUM SERUM 136 mmol/L (136-145); UREA NITROGEN, BLOOD 22 mg/dL (7-18)
[2017-05-27 23:24] LABS: PROTHROMBIN TIME 10.9 SEC (9.4-11.6)
[2017-05-27 23:52] LABS: B-TYPE NATRIURETIC PEPTIDE 27 pg/mL (0-100)
[2017-05-27 23:54] LABS: ALANINE AMINOTRANSFERASE 50 U/L (12-78); ALBUMIN 2.9 g/dL (3.4-5.0); ASPARTATE AMINOTRANSFERASE 22 U/L (15-37); BILIRUBIN,TOTAL 0.4 mg/dL (0.1-1.0); CREATINE KINASE MB 2.1 ng/mL (0-5); CREATINE KINASE, TOTAL 111 U/L (39-308); TOTAL PROTEIN, SERUM 7.3 g/dL (6.4-8.2)
[2017-05-28] MEDS ORDERED: IOVERSOL 350 MG/ML 100 ML VIAL ONE (00:53)
[2017-05-28] MEDS ORDERED: LEVOFLOXACIN 750 MG/D5% WATER 150 ML IV ONE (01:00)
[2017-05-28 01:59] LABS: APPEARANCE,URINE CLEAR (CLEAR); GLUCOSE, URINE (UA) NEGATIVE (NEGATIVE); KETONES,URINE NEGATIVE (NEGATIVE); LEUKOCYTE ESTERASE ,URINE NEGATIVE (NEGATIVE); OCCULT BLOOD,URINE NEGATIVE (NEGATIVE); PH,URINE 6.5 (5.0-8.0); PROTEIN,URINE NEGATIVE (NEGATIVE)
[2017-05-28 02:01] LABS: ADD UA MICROSCOPIC NO
[2017-05-28] MEDS ORDERED: HEPARIN SODIUM 25000 UNITS/D5W 250 ML IV PRN (03:11)
[2017-05-28] MEDS ORDERED: HEPARIN SODIUM,PORCINE 5,000 UNITS/ML VIAL IVP ONE ×2 (03:15→03:45)
[2017-05-28] MEDS ORDERED: HEPARIN SODIUM,PORCINE 5,000 UNITS/ML VIAL IVP PRN ×2 (03:15)
[2017-05-28 04:16] VITALS: BP 105/69
== END 2017-05-28 04:18 | disposition short-term general hospital (02) ==
LOC: EMS 22:34
DX: I26.99 Other pulmonary embolism without acute cor pulmonale (principal); J18.9 Pneumonia, unspecified organism; J45.909 Unspecified asthma, uncomplicated; J44.9 Chronic obstructive pulmonary disease, unspecified; F17.210 Nicotine dependence, cigarettes, uncomplicated; F12.90 Cannabis use, unspecified, uncomplicated; Z86.73 Personal history of transient ischemic attack (TIA), and cerebral infarction without residual deficits; Z88.8 Allergy status to other drugs, medicaments and biological substances
CPT/HCPCS: 36415; 71010; 71275; 80053; 81003; 82550; 82553; 83880; 84484; 85025; 85379; 85610; 85730; 93005; 96365; 96366; 96367; 96375; 99285; J1644 ×2; J1956; Q9967

== ENCOUNTER 2017-10-07 20:51 | Emergency (ER) | payer OTHER ==
[~2017-10-07] VITALS: Ht 165.1 cm; Wt 67.0 kg
[2017-10-07] MEDS ORDERED: IPRATROPIUM BROMIDE 0.5 MG/2.5 ML NEB SOLUTION NEB ONE (22:00)
[2017-10-07] MEDS ORDERED: ALBUTEROL SULFATE 2.5 MG/0.5 ML NEB SOLUTION NEB ONE (22:00)
[2017-10-07] MEDS ORDERED: SODIUM CHLORIDE 0.9% 1,000 ML IV ONE (23:15)
[2017-10-08 00:11] VITALS: BP 90/66
== END 2017-10-08 00:23 | disposition home or self-care (01) ==
LOC: EMS 20:52
DX: J44.1 Chronic obstructive pulmonary disease with (acute) exacerbation (principal); G89.29 Other chronic pain; J45.901 Unspecified asthma with (acute) exacerbation; F17.210 Nicotine dependence, cigarettes, uncomplicated; F12.90 Cannabis use, unspecified, uncomplicated; Z76.0 Encounter for issue of repeat prescription; Z86.73 Personal history of transient ischemic attack (TIA), and cerebral infarction without residual deficits; Z88.8 Allergy status to other drugs, medicaments and biological substances
CPT/HCPCS: 94640; 96360; 99284; J7030; J7613

== ENCOUNTER 2017-10-22 01:09 | Emergency (ER) | payer OTHER ==
[~2017-10-22] VITALS: Ht 165.1 cm; Wt 65.0 kg
[2017-10-22 02:53] LABS: BASOPHILS % (AUTO) 0.6 % (0.0-2.0); EOSINOPHILS % (AUTO) 3.2 % (1.0-6.0); HEMATOCRIT 38.7 % (41-53); LYMPHOCYTES # (AUTO) 1.7 K/uL (1.0-4.8); MEAN CORPUSCULAR HEMOGLOBIN 30.2 pg (26.0-34.0); MEAN CORPUSCULAR HGB CONC 33.5 G/dL (31.0-37.0); MEAN CORPUSCULAR VOLUME 90 fL (80-100); MONOCYTES # (AUTO) 0.4 K/uL (0.1-1.0); MONOCYTES % (AUTO) 6.2 % (2.0-9.0); NEUTROPHILS # (AUTO) 3.9 K/uL (1.8-7.7); PLATELET COUNT (AUTO) 243 K/uL (150-450); RED CELL DISTRIBUTION WIDTH 14.4 % (11.5-14.5)
[2017-10-22 03:00] LABS: ANION GAP 6 mmol/L (8-16); CALCIUM, TOTAL 8.9 mg/dL (8.8-10.5); CARBON DIOXIDE 30 mmol/L (22-29); CHLORIDE 106 mmol/L (98-107); CREATININE 0.86 mg/dL (0.60-1.30); GLOMERULAR FILTR. RATE CALC > 60 mL/min (>60); GLUCOSE,RANDOM 82 mg/dL (70-110); POTASSIUM 3.9 mmol/L (3.5-5.1); SODIUM SERUM 142 mmol/L (136-145); UREA NITROGEN, BLOOD 15 mg/dL (7-18)
[2017-10-22 03:06] LABS: ALANINE AMINOTRANSFERASE 40 U/L (12-78); ALBUMIN 3.1 g/dL (3.4-5.0); ALKALINE PHOSPHATASE 80 U/L (46-116); ASPARTATE AMINOTRANSFERASE 34 U/L (15-37); BILIRUBIN,TOTAL 0.4 mg/dL (0.1-1.0); TOTAL PROTEIN, SERUM 6.1 g/dL (6.4-8.2)
[2017-10-22 03:29] VITALS: BP 112/70
[2017-10-22] MEDS ORDERED: AZITHROMYCIN 250 MG TABLET PO ONE (03:30)
[2017-10-22] MEDS ORDERED: IBUPROFEN 600 MG TABLET PO ONE (03:30)
== END 2017-10-22 03:40 | disposition home or self-care (01) ==
LOC: EMS 01:10
DX: J40 Bronchitis, not specified as acute or chronic (principal); J45.909 Unspecified asthma, uncomplicated; J44.9 Chronic obstructive pulmonary disease, unspecified; F17.210 Nicotine dependence, cigarettes, uncomplicated; F12.90 Cannabis use, unspecified, uncomplicated; Z86.73 Personal history of transient ischemic attack (TIA), and cerebral infarction without residual deficits; Z88.8 Allergy status to other drugs, medicaments and biological substances
CPT/HCPCS: 93005; 99285

== ENCOUNTER 2017-10-29 17:55 | Inpatient (IN) | payer MEDICAID ==
[~2017-10-29] VITALS: Ht 165.1 cm; Wt 64.4 kg
[2017-10-29] MEDS ORDERED: ZOLPIDEM TARTRATE 10 MG TABLET PO PRN (21:00)
[2017-10-29] MEDS ORDERED: PNEUMOCOCCAL VACCINE POLYVALENT 0.5 ML VIAL [PPSV23] IM ONE (21:00)
[2017-10-29] MEDS ORDERED: LORazepam 2 MG TABLET PO PRN (21:00)
[2017-10-29] MEDS ORDERED: HALOPERIDOL 5 MG TABLET PO PRN (21:00)
[2017-10-29 21:36] VITALS: BP 109/64
[2017-10-29] MEDS ORDERED: PERMETHRIN 5% 60 GM CREAM TP ONE ×2 (22:15→23:00)
[2017-10-29] MEDS ORDERED: MAGNESIUM HYDROXIDE SUSPENSION 30 ML UDCUP PO PRN (22:15)
[2017-10-29] MEDS ORDERED: CloNIDine HCL 0.1 MG TABLET PO PRN (22:15)
[2017-10-29] MEDS ORDERED: LOPERAMIDE HCL 2 MG CAPSULE PO PRN (22:15)
[2017-10-29] MEDS ORDERED: PETROLATUM,WHITE 71 GM JELLY TP PRN (22:15)
[2017-10-29] MEDS ORDERED: IBUPROFEN 600 MG TABLET PO PRN (22:15)
[2017-10-29] MEDS ORDERED: MAG HYDROX/AL HYDROX/SIMETH ES 30 ML SUSPENSION UDCUP PO PRN (22:15)
[2017-10-29] MEDS ORDERED: BENZOCAINE/MENTHOL LOZENGE MM PRN (22:15)
[2017-10-29] MEDS ORDERED: ONDANSETRON HCL 4 MG TABLET PO PRN (22:15)
[2017-10-29] MEDS ORDERED: BACITRACIN 28.4 GM OINTMENT TP PRN (22:15)
[2017-10-30 06:13] VITALS: BP 113/69
[2017-10-30 08:28] VITALS: BP 111/67
[2017-10-30 08:30] LABS: BASOPHILS % (AUTO) 0.6 % (0.0-2.0); EOSINOPHILS % (AUTO) 3.1 % (1.0-6.0); HEMATOCRIT 42.1 % (41-53); HEMOGLOBIN 14.1 g/dL (13.5-17.5); LYMPHOCYTES # (AUTO) 1.4 K/uL (1.0-4.8); LYMPHOCYTES % (AUTO) 22.4 % (22.0-44.0); MEAN CORPUSCULAR HEMOGLOBIN 30.2 pg (26.0-34.0); MEAN CORPUSCULAR HGB CONC 33.6 G/dL (31.0-37.0); MEAN CORPUSCULAR VOLUME 90 fL (80-100); MONOCYTES # (AUTO) 0.4 K/uL (0.1-1.0); MONOCYTES % (AUTO) 6.5 % (2.0-9.0); NEUTROPHILS # (AUTO) 4.1 K/uL (1.8-7.7); NEUTROPHILS % (AUTO) 67.4 % (40.0-70.0); PLATELET COUNT (AUTO) 252 K/uL (150-450); RED BLOOD CELL COUNT(AUTO) 4.67 MIL/uL (4.50-5.90); RED CELL DISTRIBUTION WIDTH 14.5 % (11.5-14.5)
[2017-10-30 08:38] LABS: HEMOGLOBIN A1C 5.5 % (4.5-6.2)
[2017-10-30 08:43] LABS: CHOL/HDL RATIO 2.7 (4.2-7.3); FREE T4 (FREE THYROXINE) 0.85 ng/dL (0.76-1.46)
[2017-10-30] MEDS: OMEPRAZOLE 20 MG CAPSULE PO SCH (09:10)
[2017-10-30] MEDS: DOCUSATE SODIUM 100 MG CAPSULE PO SCH (09:10)
[2017-10-30] MEDS: NICOTINE 21 MG/24 HOUR PATCH TD SCH (09:10)
[2017-10-30] MEDS ORDERED: NITROGLYCERIN 0.4 MG SUBLINGUAL TABLET #25 SL PRN (10:45)
[2017-10-30] MEDS: ACETAMINOPHEN 325 MG TABLET PO PRN (14:12)
[2017-10-30 16:15] VITALS: BP 120/74
[2017-10-30] MEDS: RIVAROXABAN 20 MG TABLET PO SCH (16:23)
[2017-10-30] MEDS: OLANZapine 5 MG TABLET PO SCH (20:08)
[2017-10-31 05:28] VITALS: BP 118/73
[2017-10-31 07:36] LABS: BASOPHILS % (AUTO) 0.8 % (0.0-2.0); EOSINOPHILS % (AUTO) 4.1 % (1.0-6.0); HEMATOCRIT 40.9 % (41-53); HEMOGLOBIN 13.6 g/dL (13.5-17.5); LYMPHOCYTES # (AUTO) 1.7 K/uL (1.0-4.8); LYMPHOCYTES % (AUTO) 30.6 % (22.0-44.0); MEAN CORPUSCULAR HEMOGLOBIN 29.9 pg (26.0-34.0); MEAN CORPUSCULAR HGB CONC 33.3 G/dL (31.0-37.0); MEAN CORPUSCULAR VOLUME 90 fL (80-100); MONOCYTES # (AUTO) 0.4 K/uL (0.1-1.0); MONOCYTES % (AUTO) 7.3 % (2.0-9.0); NEUTROPHILS # (AUTO) 3.2 K/uL (1.8-7.7); NEUTROPHILS % (AUTO) 57.2 % (40.0-70.0); PLATELET COUNT (AUTO) 233 K/uL (150-450); RED BLOOD CELL COUNT(AUTO) 4.56 MIL/uL (4.50-5.90)
[2017-10-31 07:59] LABS: ALANINE AMINOTRANSFERASE 30 U/L (12-78); ALBUMIN 2.9 g/dL (3.4-5.0); ALKALINE PHOSPHATASE 80 U/L (46-116); ANION GAP 6 mmol/L (8-16); ASPARTATE AMINOTRANSFERASE 21 U/L (15-37); BILIRUBIN,TOTAL 0.3 mg/dL (0.1-1.0); CALCIUM, TOTAL 8.3 mg/dL (8.8-10.5); CARBON DIOXIDE 28 mmol/L (22-29); CHLORIDE 110 mmol/L (98-107); CREATININE 0.71 mg/dL (0.60-1.30); GLOMERULAR FILTR. RATE CALC > 60 mL/min (>60); GLUCOSE,RANDOM 87 mg/dL (70-110); POTASSIUM 4.6 mmol/L (3.5-5.1); SODIUM SERUM 144 mmol/L (136-145); TOTAL PROTEIN, SERUM 5.5 g/dL (6.4-8.2); UREA NITROGEN, BLOOD 20 mg/dL (7-18)
[2017-10-31] MEDS: NICOTINE 21 MG/24 HOUR PATCH TD SCH (08:28)
[2017-10-31] MEDS: OMEPRAZOLE 20 MG CAPSULE PO SCH (08:28)
[2017-10-31] MEDS: FLUoxetine HCL 20 MG CAPSULE PO SCH (08:28)
[2017-10-31] MEDS: DOCUSATE SODIUM 100 MG CAPSULE PO SCH (08:29)
[2017-10-31 08:40] VITALS: BP 100/69
[2017-10-31] MEDS: ACETAMINOPHEN 325 MG TABLET PO PRN ×2 (15:56→21:07)
[2017-10-31 16:01] VITALS: BP 113/64
[2017-10-31] MEDS: RIVAROXABAN 20 MG TABLET PO SCH (16:40)
[2017-10-31] MEDS: OLANZapine 5 MG TABLET PO SCH (20:03)
[2017-10-31 21:08] VITALS: BP 110/68
[2017-11-01 02:55] VITALS: BP 113/75
[2017-11-01] MEDS: ACETAMINOPHEN 325 MG TABLET PO PRN ×3 (02:59→21:03)
[2017-11-01 08:23] VITALS: BP 114/67
[2017-11-01] MEDS: OMEPRAZOLE 20 MG CAPSULE PO SCH (08:57)
[2017-11-01] MEDS: DOCUSATE SODIUM 100 MG CAPSULE PO SCH (08:57)
[2017-11-01] MEDS: FLUoxetine HCL 20 MG CAPSULE PO SCH (08:57)
[2017-11-01] MEDS: NICOTINE 21 MG/24 HOUR PATCH TD SCH (08:57)
[2017-11-01 16:25] VITALS: BP 111/64
[2017-11-01 16:37] VITALS: BP 126/82
[2017-11-01] MEDS: RIVAROXABAN 20 MG TABLET PO SCH (16:37)
[2017-11-01] MEDS: OLANZapine 5 MG TABLET PO SCH (20:12)
[2017-11-01 21:03] VITALS: BP 116/72
[2017-11-02 04:30] VITALS: BP 121/58
[2017-11-02] MEDS: ACETAMINOPHEN 325 MG TABLET PO PRN (04:35)
[2017-11-02] MEDS: ALBUTEROL SULFATE HFA 90 MCG/PUFF 8 GM INHALER IH PRN (04:44)
[2017-11-02] MEDS: DOCUSATE SODIUM 100 MG CAPSULE PO SCH (08:12)
[2017-11-02] MEDS: OMEPRAZOLE 20 MG CAPSULE PO SCH (08:12)
[2017-11-02] MEDS: FLUoxetine HCL 20 MG CAPSULE PO SCH (08:12)
[2017-11-02] MEDS: CHOLECALCIFEROL (VIT D3) 1,000 UNITS TABLET PO SCH (08:12)
[2017-11-02] MEDS: NICOTINE 21 MG/24 HOUR PATCH TD SCH (08:13)
[2017-11-02 08:55] VITALS: BP 117/69
[2017-11-02] MEDS: RIVAROXABAN 20 MG TABLET PO SCH (16:35)
[2017-11-02 17:00] VITALS: BP 120/76
[2017-11-02] MEDS: OLANZapine 10 MG TABLET PO SCH (20:49)
[2017-11-03 01:30] VITALS: BP 119/77
[2017-11-03] MEDS: ACETAMINOPHEN 325 MG TABLET PO PRN ×2 (05:53→13:26)
[2017-11-03] MEDS: OMEPRAZOLE 20 MG CAPSULE PO SCH (08:40)
[2017-11-03] MEDS: FLUoxetine HCL 20 MG CAPSULE PO SCH (08:40)
[2017-11-03] MEDS: NICOTINE 21 MG/24 HOUR PATCH TD SCH (08:40)
[2017-11-03] MEDS: DOCUSATE SODIUM 100 MG CAPSULE PO SCH (08:40)
[2017-11-03] MEDS: CHOLECALCIFEROL (VIT D3) 1,000 UNITS TABLET PO SCH (08:40)
[2017-11-03 08:42] VITALS: BP 121/72
[2017-11-03 13:28] VITALS: BP 113/72
[2017-11-03 16:42] VITALS: BP 115/70
[2017-11-03] MEDS: RIVAROXABAN 20 MG TABLET PO SCH (17:19)
[2017-11-03] MEDS: OLANZapine 10 MG TABLET PO SCH (20:17)
[2017-11-04 01:20] VITALS: BP 108/70
[2017-11-04] MEDS: ACETAMINOPHEN 325 MG TABLET PO PRN (01:30)
[2017-11-04] MEDS: ALBUTEROL SULFATE HFA 90 MCG/PUFF 8 GM INHALER IH PRN (04:42)
[2017-11-04] MEDS: OMEPRAZOLE 20 MG CAPSULE PO SCH (07:41)
[2017-11-04] MEDS: DOCUSATE SODIUM 100 MG CAPSULE PO SCH (07:41)
[2017-11-04] MEDS: FLUoxetine HCL 20 MG CAPSULE PO SCH (07:42)
[2017-11-04] MEDS: CHOLECALCIFEROL (VIT D3) 1,000 UNITS TABLET PO SCH (07:42)
[2017-11-04] MEDS: NICOTINE 21 MG/24 HOUR PATCH TD SCH (07:44)
[2017-11-04 08:16] LABS: HEMOGLOBIN 12.7 g/dL (13.5-17.5); MEAN CORPUSCULAR HEMOGLOBIN 30.8 pg (26.0-34.0); MEAN CORPUSCULAR HGB CONC 34.5 G/dL (31.0-37.0); MEAN CORPUSCULAR VOLUME 89 fL (80-100); PLATELET COUNT (AUTO) 219 K/uL (150-450); RED BLOOD CELL COUNT(AUTO) 4.13 MIL/uL (4.50-5.90); RED CELL DISTRIBUTION WIDTH 14.2 % (11.5-14.5)
[2017-11-04 08:22] LABS: ANION GAP 5 mmol/L (8-16); CALCIUM, TOTAL 8.5 mg/dL (8.8-10.5); CARBON DIOXIDE 29 mmol/L (22-29); CHLORIDE 104 mmol/L (98-107); CREATININE 0.75 mg/dL (0.60-1.30); GLOMERULAR FILTR. RATE CALC > 60 mL/min (>60); GLUCOSE,RANDOM 97 mg/dL (70-110); PHOSPHORUS 4.3 mg/dL (2.5-4.9); POTASSIUM 4.1 mmol/L (3.5-5.1); SODIUM SERUM 138 mmol/L (136-145); UREA NITROGEN, BLOOD 27 mg/dL (7-18)
[2017-11-04 08:35] VITALS: BP 122/71
[2017-11-04] MEDS ORDERED: OMEP20 PO (08:37)
[2017-11-04] MEDS ORDERED: DSS100 PO (08:37)
[2017-11-04] MEDS ORDERED: RIVA20TA PO (08:37)
[2017-11-04] MEDS ORDERED: OLAN10TA3 PO (08:37)
[2017-11-04] MEDS ORDERED: FLUO-191 PO (08:37)
[2017-11-04] MEDS ORDERED: VITAD1000 PO (08:37)
[2017-11-04 10:21] LABS: BAND NEUTROPHILS % (MANUAL) 1 % (0-5); EOSINOPHILS % (MANUAL) 4 % (1-6); LYMPHOCYTES % (MANUAL) 30 % (22-44); MONOCYTES % (MANUAL) 3 % (2-9); SEGMENTED NEUTROPHILS % 62 % (40-70)
== END 2017-11-04 13:20 | disposition home or self-care (01) | DRG 750 ==
LOC: B2S 20:55
PROVIDERS: ADMIT Psychiatry & Neurology Psychiatry; ATTEND Psychiatry & Neurology Psychiatry
PROC: 3E0234Z Introduction of Serum, Toxoid and Vaccine into Muscle, Percutaneous Approach (ICD-10-PCS; principal; 2017-10-29)
DX: F25.0 Schizoaffective disorder, bipolar type (principal); R45.851 Suicidal ideations; Z91.19 Patient's noncompliance with other medical treatment and regimen; B86 Scabies; E55.9 Vitamin D deficiency, unspecified; F17.200 Nicotine dependence, unspecified, uncomplicated; Z59.0 Homelessness; J44.9 Chronic obstructive pulmonary disease, unspecified; F60.3 Borderline personality disorder; G47.00 Insomnia, unspecified; I25.10 Atherosclerotic heart disease of native coronary artery without angina pectoris; F41.9 Anxiety disorder, unspecified; K40.90 Unilateral inguinal hernia, without obstruction or gangrene, not specified as recurrent; L30.9 Dermatitis, unspecified; F12.90 Cannabis use, unspecified, uncomplicated; Z90.49 Acquired absence of other specified parts of digestive tract; Z88.8 Allergy status to other drugs, medicaments and biological substances; Z91.5 Personal history of self-harm; Z86.73 Personal history of transient ischemic attack (TIA), and cerebral infarction without residual deficits; Z23 Encounter for immunization
CPT/HCPCS: 82306; 83036; 83735; 84100; 84436; 84439; 85007; 90471; J3535

== ENCOUNTER 2017-11-20 17:50 | Emergency (ER) | payer MEDICAID, OTHER ==
[~2017-11-20] VITALS: Ht 165.1 cm; Wt 73.2 kg
[~2017-11-20 17:50] MED LIST changes: -BUDE10.2 IH; +DSS100 PO; +FLUO-191 PO; -IBUP-2070 PO; +OLAN10TA3 PO; +OMEP20 PO; +RIVA20TA PO; +VITAD1000 PO
[2017-11-20] MEDS ORDERED: MONT10TA21 PO (18:49)
[2017-11-20] MEDS ORDERED: MELO-107 PO (18:49)
[2017-11-20] MEDS ORDERED: BUDE10.2 IH (18:49)
[2017-11-20] MEDS ORDERED: DICL2100G TP (18:49)
[2017-11-20] MEDS ORDERED: GABA-531 PO (18:49)
[2017-11-20 19:21] LABS: EOSINOPHILS % (AUTO) 3.6 % (1.0-6.0); HEMATOCRIT 36.4 % (41-53); HEMOGLOBIN 12.4 g/dL (13.5-17.5); LYMPHOCYTES # (AUTO) 1.1 K/uL (1.0-4.8); LYMPHOCYTES % (AUTO) 24.8 % (22.0-44.0); MEAN CORPUSCULAR HEMOGLOBIN 30.2 pg (26.0-34.0); MEAN CORPUSCULAR VOLUME 89 fL (80-100); MONOCYTES # (AUTO) 0.4 K/uL (0.1-1.0); MONOCYTES % (AUTO) 8.3 % (2.0-9.0); NEUTROPHILS # (AUTO) 2.7 K/uL (1.8-7.7); NEUTROPHILS % (AUTO) 62.3 % (40.0-70.0); PLATELET COUNT (AUTO) 234 K/uL (150-450); RED BLOOD CELL COUNT(AUTO) 4.09 MIL/uL (4.50-5.90); RED CELL DISTRIBUTION WIDTH 14.7 % (11.5-14.5)
[2017-11-20 19:30] LABS: ANION GAP 6 mmol/L (8-16); CALCIUM, TOTAL 8.2 mg/dL (8.8-10.5); CARBON DIOXIDE 28 mmol/L (22-29); CHLORIDE 105 mmol/L (98-107); CREATININE 0.88 mg/dL (0.60-1.30); GLOMERULAR FILTR. RATE CALC > 60 mL/min (>60); GLUCOSE,RANDOM 93 mg/dL (70-110); SODIUM SERUM 139 mmol/L (136-145); UREA NITROGEN, BLOOD 28 mg/dL (7-18)
[2017-11-20 19:36] LABS: ALANINE AMINOTRANSFERASE 40 U/L (12-78); ALBUMIN 3.1 g/dL (3.4-5.0); ALKALINE PHOSPHATASE 88 U/L (46-116); ASPARTATE AMINOTRANSFERASE 34 U/L (15-37); BILIRUBIN,TOTAL 0.3 mg/dL (0.1-1.0); TOTAL PROTEIN, SERUM 6.2 g/dL (6.4-8.2)
[2017-11-20 21:30] VITALS: BP 119/74
== END 2017-11-20 21:35 | disposition home or self-care (01) ==
LOC: EMS 17:52
DX: F25.9 Schizoaffective disorder, unspecified (principal); M79.1 Myalgia; F17.210 Nicotine dependence, cigarettes, uncomplicated; F41.9 Anxiety disorder, unspecified; F31.9 Bipolar disorder, unspecified; J45.909 Unspecified asthma, uncomplicated; J44.9 Chronic obstructive pulmonary disease, unspecified; F12.90 Cannabis use, unspecified, uncomplicated; Z86.73 Personal history of transient ischemic attack (TIA), and cerebral infarction without residual deficits; Z88.8 Allergy status to other drugs, medicaments and biological substances
CPT/HCPCS: 36415; 80053; 85025; 99284; 99406; G0480

== ENCOUNTER 2017-12-29 19:27 | Emergency (ER) | payer OTHER ==
[~2017-12-29] VITALS: Ht 167.6 cm; Wt 67.0 kg
[~2017-12-29 19:27] MED LIST changes: -ALBU8HFA IH; +BUDE10.2 IH; +DICL2100G TP; +GABA-531 PO; +MELO-107 PO; +MONT10TA21 PO; -RIVA20TA PO
[2017-12-29 22:00] VITALS: BP 128/76
[2017-12-29] MEDS ORDERED: ONDANSETRON HCL 4 MG/2 ML VIAL IVP ONE (22:15)
[2017-12-29] MEDS ORDERED: MORPHINE SULFATE 4 MG/ML SYRINGE IVP ONE (22:15)
[2017-12-29] MEDS ORDERED: SODIUM CHLORIDE 0.9% 1,000 ML IV ONE (22:15)
[2017-12-29 22:32] LABS: BASOPHILS % (AUTO) 1.2 % (0.0-2.0); EOSINOPHILS % (AUTO) 3.1 % (1.0-6.0); HEMATOCRIT 36.9 % (41-53); HEMOGLOBIN 12.5 g/dL (13.5-17.5); LYMPHOCYTES # (AUTO) 1.7 K/uL (1.0-4.8); LYMPHOCYTES % (AUTO) 26.3 % (22.0-44.0); MEAN CORPUSCULAR HEMOGLOBIN 30.4 pg (26.0-34.0); MEAN CORPUSCULAR VOLUME 90 fL (80-100); MONOCYTES # (AUTO) 0.5 K/uL (0.1-1.0); NEUTROPHILS # (AUTO) 4.1 K/uL (1.8-7.7); NEUTROPHILS % (AUTO) 62.4 % (40.0-70.0); PLATELET COUNT (AUTO) 222 K/uL (150-450); RED BLOOD CELL COUNT(AUTO) 4.13 MIL/uL (4.50-5.90); RED CELL DISTRIBUTION WIDTH 15.6 % (11.5-14.5)
[2017-12-29 22:43] LABS: ANION GAP 6 mmol/L (8-16); CALCIUM, TOTAL 8.3 mg/dL (8.8-10.5); CARBON DIOXIDE 27 mmol/L (22-29); CHLORIDE 109 mmol/L (98-107); CREATININE 0.77 mg/dL (0.60-1.30); GLOMERULAR FILTR. RATE CALC > 60 mL/min (>60); GLUCOSE,RANDOM 88 mg/dL (70-110); POTASSIUM 3.7 mmol/L (3.5-5.1); SODIUM SERUM 142 mmol/L (136-145); UREA NITROGEN, BLOOD 30 mg/dL (7-18)
[2017-12-29 22:46] LABS: ALANINE AMINOTRANSFERASE 38 U/L (12-78); ALBUMIN 3.1 g/dL (3.4-5.0); ALKALINE PHOSPHATASE 108 U/L (46-116); ASPARTATE AMINOTRANSFERASE 24 U/L (15-37); BILIRUBIN,TOTAL 0.2 mg/dL (0.1-1.0); LIPASE 108 U/L (73-393); TOTAL PROTEIN, SERUM 6.4 g/dL (6.4-8.2)
[2017-12-29 22:48] LABS: APPEARANCE,URINE CLEAR (CLEAR); BILIRUBIN,URINE NEGATIVE (NEGATIVE); GLUCOSE, URINE (UA) NEGATIVE (NEGATIVE); KETONES,URINE NEGATIVE (NEGATIVE); LEUKOCYTE ESTERASE ,URINE NEGATIVE (NEGATIVE); NITRATE,URINE NEGATIVE (NEGATIVE); OCCULT BLOOD,URINE NEGATIVE (NEGATIVE); PROTEIN,URINE NEGATIVE (NEGATIVE); UROBILINOGEN,URINE 0.2 mg/dL (<=1.0)
[2017-12-29 22:57] LABS: BACTERIA,URINE None Seen /HPF (None Seen); RBC,URINE None Seen /HPF (0-2); WBC,URINE None Seen /HPF (0-5)
== END 2017-12-29 23:49 | disposition home or self-care (01) ==
LOC: EMS 19:28
DX: K40.90 Unilateral inguinal hernia, without obstruction or gangrene, not specified as recurrent (principal); J45.909 Unspecified asthma, uncomplicated; J44.9 Chronic obstructive pulmonary disease, unspecified; F17.210 Nicotine dependence, cigarettes, uncomplicated; F12.90 Cannabis use, unspecified, uncomplicated; Z86.73 Personal history of transient ischemic attack (TIA), and cerebral infarction without residual deficits; Z88.8 Allergy status to other drugs, medicaments and biological substances
CPT/HCPCS: 36415; 80053; 81001; 83690; 85025; 96361; 96374; 96375; 99284; J2270; J2405; J7030